=== PATIENT | male | born 1985 | race African-American/Black ===

== ENCOUNTER 2023-11-01 16:48 | Inpatient (IN) ==
[2023-11-01] MEDS: propofoL 1,000 MG/100 ML VIAL IV SCH (17:13)
[2023-11-01] MEDS: PROPOFOL IV EMULSION 10 MG/ML 20 ML VIAL IV ONE ×2 (17:15→18:06)
[2023-11-01 17:16] LABS: iSTAT Creatinine 1.3 mg/dl (0.6-1.3); iSTAT Ionized Calcium 1.24 mmol/l (1.12-1.32); iSTAT Potassium 4.3 mmol/L (3.3-5.0)
--- NOTE | 2023-11-01 17:33 | XRay Report ---
XR chest 1V portable CLINICAL HISTORY: Altered mental status. COMPARISON STUDY: None. FINDINGS: Initial image obtained at 5:00 PM demonstrated low lung volumes. Bibasilar opacities may re flect atelectasis. Subsequent image obtained of 5:16 PM demonstrate interval placement of an endotrac heal tube. Tip is 4.2 cm above the balwinder. Tip of nasogastric tube is at least within the body of the stomach. No pneumothorax or pleural effusion. There is mild opacity along the left heart border. No evidence for pulmonary edema. IMPRESSION: 1. Satisfactory positioning of the endotracheal and nasogastric tubes. 2. Mild left basilar opacity. This favors atelectasis although pneumonia/aspiration pneumonitis could appear similar. 3. No pneumothorax. ACT 112: Negative or not required by law. Electronically signed by: Mendoza Le M.D. 11/01/2023 5:32 PM
--- NOTE | 2023-11-01 17:43 | CT Scan Report ---
CT OF THE HEAD WITHOUT CONTRAST CLINICAL HISTORY: Seizure. COMPARISON STUDY: No previous studies for comparison. CT DOSE: 625.8 mGy.cm TECHNIQUE: Helical axial images of the head were obtained without IV contrast. Automated exposure con trol was utilized for the study. A dose lowering technique was utilized adhering to the principles o f ALARA. FINDINGS: No acute intracranial hemorrhage, midline shift or mass effect is present. The ventricular system is unremarkable. The basal cisterns are patent. No extra-axial collections are present. There are no findings to suggest acute dural sinus thrombosis or acute territorial infarct. There are no ca lvarial fractures. Scalp edema/skin thickening is incidentally noted. There are secretions within the nasopharynx. IMPRESSION: 1. No acute intracranial findings. 2. No calvarial fractures. ACT 112: Negative or not required by law. Electronically signed by: Mendoza Le M.D. 11/01/2023 5:42 PM
[2023-11-01 17:46] LABS: Basophils # (auto) 0.02 K/uL (0.00-0.20); Basophils % (auto) 0.3 %; Eosinophils # (auto) 0.01 K/uL (0.00-0.50); Eosinophils % (auto) 0.1 %; Hematocrit (blood only) 46.9 % (42.0-52.0); Hemoglobin 14.4 g/dl (14.0-18.0); Immature Granulocytes # (auto) 0.03 K/uL (0.01-0.20); Immature Granulocytes % (auto) 0.4 %; Lymphocytes # (auto) 2.18 K/uL (1.20-3.40); Lymphocytes % (auto) 29.8 %; Mean Corpuscular Hgb Conc 30.7 g/dL (32.0-36.0); Mean Corpuscular Volume 84.7 fL (80.0-100.0); Monocytes # (auto) 0.34 K/uL (0.11-0.59); Monocytes % (auto) 4.7 %; Neutrophils # (auto) 4.73 K/uL (1.40-6.50); Neutrophils % (auto) 64.7 %; Platelet Count 321 K/uL (130-400); RDW Standard Deviation 46.6 fL (36.4-46.3); Red Blood Count 5.54 M/uL (4.70-6.10); White Blood Count 7.31 K/ul (4.8-10.8)
[2023-11-01 17:56] LABS: Appearance Urine Clear (Clear); Bacteria Urine Automated None Seen (None Seen); Bilirubin Urine Negative (Negative); Blood Urine 1+ (Negative); Calcium Oxalate Crystals Urine Present (None Prsent); Color Urine Yellow; Glucose Urine UA Trace (Negative); Hyaline Casts Urine Present /lpf (None Presnt); Ketones Urine Negative (Negative); Leukocyte Esterase Urine Negative (Negative); Nitrite Urine Negative (Negative); Protein Urine 3+ (Negative); Specific Gravity Urine 1.017 (1.000-1.030); Urobilinogen Urine Negative (Negative); pH Urine 5.5 (4.5-7.5)
[2023-11-01 18:01] LABS: Alanine Aminotransferase 36 U/L (7-52); Albumin Level 4.7 gm/dl (3.4-5.0); Alkaline Phosphatase 63 U/L (34-104); Anion Gap 10 (3-11); Aspartate Aminotransferase 24 U/L (13-39); BUN Creatinine Ratio 11.7 (10-20); Bilirubin Direct 0.1 mg/dl (0-0.2); Bilirubin,Total 0.3 mg/dl (0.2-1.0); Blood Urea Nitrogen 14 mg/dl (6-23); Calcium 9.9 mg/dl (8.6-10.3); Carbon Dioxide 33 mmol/L (21-32); Chloride 103 mmol/L (98-107); Est GFR (African American) 90.3 ml/min; Est GFR (Non-African American) 77.9 ml/min; Glucose 162 mg/dl (70-99(Fasting)); Lipase 24 U/L (11-82); Magnesium 2.2 mg/dl (1.7-2.4); Potassium 4.3 mmol/L (3.5-5.1); Sodium 146 mmol/L (136-145)
[2023-11-01 18:03] LABS: Acetaminophen < 3 ug/ml (10-30); Salicylate < 3.0 mg/dl (3.0-30)
[2023-11-01] MEDS: PROPOFOL IV EMULSION 10 MG/ML 100 ML VIAL IV ONE (18:06)
[2023-11-01 18:07] LABS: Troponin I High Sensitivity 8.9 pg/ml (0-20)
[2023-11-01 18:22] LABS: Partial Thromboplastin Ratio 0.9; Partial Thromboplastin Time 24 Seconds (21-31); Prothrombin Time 10.9 Seconds (9.0-12.0)
[2023-11-01] MEDS: fentaNYL citrate 2,500 MCG/250 ML BAG IV SCH (18:24)
[2023-11-01 18:34] LABS: Amphetamines+Metham, Urine Neg (Neg); Barbiturates, Urine Neg (Neg); Benzodiazepine, Urine Pos (Neg); Cocaine, Urine Neg (Neg); Fentanyl, Urine Neg (Neg); MDMA (Ecstacy), Urine Neg (Neg); Marijuana, Urine Neg (Neg); Methadone, Urine Neg (Neg); Opiate, Urine Neg (Neg); Phencyclidine, Urine Neg (Neg)
[2023-11-01] MEDS: fentaNYL BOLUS from BAG IV PRN (18:35)
[2023-11-01] MEDS: RAPID SEQUENCE INDUCTION BAG ONE (18:48)
[2023-11-01] MEDS: STAT IV Infusion **Titration per Protocol STA (18:48)
--- NOTE | 2023-11-01 19:01 | History & Physical Report ---
Date of Service November 01, 2023 Assessment & Plan (1) AMS (altered mental status): Plan: Altered mental status, patient found unresponsive,? Drug-induced Initially reported to be unresponsive and alf cell. Collateral obtained from [facility]. Patient was found writhing with possible seizure-like activity and yelling out extremely agitated, received Narcan x 2 and then became sedated and EMS was called. Reportedly recent Suboxone, fentanyl, and K2 use within the alf although patient does not have a record of drug use as far as they are aware. No metabolic acidosis. Alcohol is negative. Drug screen is positive for benzos after receiving Versed. UTox otherwise negative, although history of synthetic and Suboxone at the alf in other inmates recently No leukocytosis, no reported fevers or infectious symptoms prior to episode. Follow fever curve. CThead without acute findings, specifically no evidence of intracranial bleed Patient with reduced consciousness in ER, was intubated for airway protection Admitted to ICU for respiratory management. On propofol/fentanyl for sedation/analgesia Serum osmolality pending VBG 7.4/49/34/30 (2) Seizure-like activity: Plan: Seizure like activity,? Drug-induced No prior history of seizure Reported in the field by EMS, received 5 mg of midazolam subsequently on propofol following intubation. Collateral obtained from [facility]. Patient was reported Malcolm found down writhing with seizure activity, but was screaming aloud and very agitated at the time. Received Narcan x 2 and calm down, but then subsequently had respiratory suppression. Suspicious for drug-induced episode rather than true tonic-clonic seizure CThead without acute findings - Discussed w/ Neuro. Agree w/ observation and washout. Ativan on-call if recurrent seizure. if additional seizures --> +1g Keppra load and continue BID, consult neuro, +MRI in AM, EEG in AM. - Seizure precautions - No prior hx seizure (3) HTN (hypertension): Plan: Hypertension FLE[employer] amlodipine, lisinoprilhydrochlorothiazide temporarily held, resume 11/01 Plan SCDs Full code N.p.o. History of Present Illness Primary Care Provider: HARMAN Percy 37-year-old male arrived brought in by ambulance from [facility] found unresponsive cell. Received 2 doses of Narcan in the field, per EMS patient had tonic-clonic seizure and was given 5 mg of midazolam by EMS. On arrival to ER patient was on nonrebreather, minimally responsive to painful stimuli, unresponsive to voice and was subsequently intubated. Reported history of K2, Suboxone, fentanyl within present. Urine toxicology negative for alcohol, positive for benzos following midazolam administration, negative for salicylate/acetaminophen. CT of the head was without acute findings. Chest x- ray favoring atelectasis but from which aspiration is not ruled out, ETT in place. Intubated for airway protection. On propofol and fentanyl. History not available from patient due to ETT and mental status. Collateral obtained by phone from [facility] [place] [place] [facility]: Recent K2, suboxone, fentanyl use within the alf inmates. No specific hx in Mr. Levy of drug use. Was found on the block yelling out with vomiting, narcan x2 and calmed down but breathing subsequently diminished and EMS was called for evaluation. Hx HTN on amlodipine/lisinopril/hctz, metformin 500mg for pre-DM. No other meds. No med allergies. No other notes or history available. Allergies Allergy/AdvReac Type Severity Reaction Status Date / Time No Known Allergies Allergy Verified 11/01/23 17:37 Home Medications Medication Instructions Recorded Confirmed Type amlodipine 10 mg tablet 10 mg PO DAILY 11/01/23 11/01/23 History lisinopril 20 1 tab PO DAILY 11/01/23 11/01/23 History mg-hydrochlorothiazide 25 mg tablet metformin 500 mg tablet 500 mg PO BIDWMEAL 11/01/23 11/01/23 History Past Med/Surg History Problem List Seizure-like activity HTN (hypertension) AMS (altered mental status) Social History Smoking Status: Unknown if ever smoked Preferred Language: Ukrainian Physical Exam Physical Exam: General: ETT in place. HEENT: Atraumatic, normocephalic. Pupils equal, reactive to light bilaterally Pulm: CTAB A&P. -wheezes, -rales, -rhonchi. Symmetrical chest rise. No increased work of breathing. No respiratory distress. Cardiac: RRR, -mrg. Radial pulses intact and symmetrical. Abdominal: nondistended, soft. BS present. Extremities: Withdraws to noxious stimuli in hands and feet bilaterally. Results & Data Results & Data Vital Signs (Past 12 Hours) Vital Signs Temp Pulse Resp BP Pulse Ox O2 Del Method FiO2 11/01/23 18:40 155/112 H 11/01/23 18:39 36.1 C L 83 20 95 Mechanical Vent 11/01/23 18:35 162/108 H 11/01/23 18:30 36.1 C L 85 20 94 Mechanical Vent 11/01/23 18:30 141/97 H 11/01/23 18:25 138/102 H 11/01/23 18:21 36.1 C L 84 20 93 Mechanical Vent 11/01/23 18:20 154/112 H 11/01/23 18:15 139/96 11/01/23 18:10 150/101 H 11/01/23 18:09 36.2 C L 91 H 20 95 11/01/23 18:06 36.2 C L 89 20 94 11/01/23 18:05 122/99 11/01/23 17:55 170/122 H 11/01/23 17:55 170/122 H 11/01/23 17:50 162/120 H 11/01/23 17:48 125 H 11/01/23 17:45 159/110 H 11/01/23 17:40 162/104 H 11/01/23 17:20 135/93 11/01/23 17:18 122 H 20 90 Mechanical Vent 11/01/23 17:15 120/80 11/01/23 17:12 126 H 20 94 50 11/01/23 17:11 130/83 11/01/23 17:11 130/83 11/01/23 17:07 154/113 H 11/01/23 17:07 154/113 H 11/01/23 17:06 117 H 94 Ambu-Bag 11/01/23 17:05 108/88 11/01/23 17:03 117 H 96 11/01/23 17:00 107/91 11/01/23 17:00 107/91 11/01/23 16:55 Room Air 11/01/23 16:55 Non-rebreather 11/01/23 16:55 36.6 C Non-rebreather PG Care Time/CCT Total # of Minutes Spent Total Time Spent with Patient: Total time spent is greater than 50% in coordination of care (as documented) at patient's floor/unit and/or counseling patient: Coding Level of Care Code 33617 INT INP/OBS CARE MIN Diagnoses AMS (altered mental status) R41.82 Seizure-like activity R56.9 HTN (hypertension) I10
[2023-11-01 19:04] LABS: Base Excess VBG 4.5 mEq/L; HCO3 VBG 30 mmol/L; PCO2 VBG 49 mmHg (38-50); PO2 VBG 34 mmHg
--- NOTE | 2023-11-01 19:51 | Emergency Department Note ---
History of Present Illness General Chief complaint: Unresponsive Stated complaint: UNRESPONSIVE Time Seen by Provider: 11/01/23 16:55 Source: EMS and police History of Present Illness Provider complaint: Altered mental status unresponsive 37-year-old male prisoner presents emergency department with correctional officers via EMS. According to EMS and correctional officers, there was concern that the patient might of overdose. Patient went to the [facility] for suspected overdose and 8 mg of Narcan was given intranasally. According to the correctional officers the patient did seem more alert after that. EMS arrived when EMS arrived was transporting the patient patient started have seizure-like activity tonic-clonic jerks being. 5 mg midazolam was given to the patient which stopped the tonic-clonic jerking. Patient has no history of seizures. History of hypertension. 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 No concern for trauma per the correctional officers at bedside. Home Medications Medication Instructions Recorded Confirmed Type amlodipine 10 mg tablet 10 mg PO DAILY 11/01/23 11/01/23 History lisinopril 20 1 tab PO DAILY 11/01/23 11/01/23 History mg-hydrochlorothiazide 25 mg tablet metformin 500 mg tablet 500 mg PO BIDWMEAL 11/01/23 11/01/23 History Allergies Allergy/AdvReac Type Severity Reaction Status Date / Time No Known Allergies Allergy Verified 11/01/23 17:37 Past Med/Surg History Problem List (Updated 11/01/23 @ 20:01 by Eugenio Charlton MD) Acute drug overdose (Acute) Seizure-like activity (Acute) AMS (altered mental status) Medical History HTN (hypertension) Social History Smoking Status: Unknown if ever smoked Preferred Language: Bulgarian Physical Exam Vital Signs Vital Signs - 24 hr 11/01/23 16:55 11/01/23 16:55 11/01/23 16:55 Temperature 36.6 C Temperature Source Oral Pulse Rate Pulse Rate from SpO2 Sensor Respiratory Rate Blood Pressure Blood Pressure Mean Pulse Oximetry Oxygen Delivery Method Non-rebreather Non-rebreather Room Air Fraction of Inspired Oxygen Sepsis New/Unexplained Change in Mental Status No Sepsis Action Taken by Nursing No Action Required End-Tidal CO2 11/01/23 17:00 11/01/23 17:00 11/01/23 17:03 Temperature Temperature Source Pulse Rate 117 H Pulse Rate from SpO2 Sensor 120 H Respiratory Rate Blood Pressure 107/91 107/91 Blood Pressure Mean 98 98 Pulse Oximetry 96 Oxygen Delivery Method Fraction of Inspired Oxygen Sepsis New/Unexplained Change in Mental Status Sepsis Action Taken by Nursing End-Tidal CO2 11/01/23 17:05 11/01/23 17:06 11/01/23 17:07 Temperature Temperature Source Pulse Rate 117 H Pulse Rate from SpO2 Sensor 118 H Respiratory Rate Blood Pressure 108/88 154/113 H Blood Pressure Mean 93 133 Pulse Oximetry 94 Oxygen Delivery Method Ambu-Bag Fraction of Inspired Oxygen Sepsis New/Unexplained Change in Mental Status Sepsis Action Taken by Nursing End-Tidal CO2 11/01/23 17:07 11/01/23 17:11 11/01/23 17:11 Temperature Temperature Source Pulse Rate Pulse Rate from SpO2 Sensor Respiratory Rate Blood Pressure 154/113 H 130/83 130/83 Blood Pressure Mean 133 103 103 Pulse Oximetry Oxygen Delivery Method Fraction of Inspired Oxygen Sepsis New/Unexplained Change in Mental Status Sepsis Action Taken by Nursing End-Tidal CO2 11/01/23 17:12 11/01/23 17:15 11/01/23 17:18 Temperature Temperature Source Pulse Rate 126 H 122 H Pulse Rate from SpO2 Sensor 122 H Respiratory Rate 20 20 Blood Pressure 120/80 Blood Pressure Mean 93 Pulse Oximetry 94 90 Oxygen Delivery Method Mechanical Vent Fraction of Inspired Oxygen 50 Sepsis New/Unexplained Change in Mental Status Sepsis Action Taken by Nursing End-Tidal CO2 49 47 11/01/23 17:20 11/01/23 17:40 11/01/23 17:45 Temperature Temperature Source Pulse Rate Pulse Rate from SpO2 Sensor Respiratory Rate Blood Pressure 135/93 162/104 H 159/110 H Blood Pressure Mean 103 120 128 Pulse Oximetry Oxygen Delivery Method Fraction of Inspired Oxygen Sepsis New/Unexplained Change in Mental Status Sepsis Action Taken by Nursing End-Tidal CO2 11/01/23 17:48 11/01/23 17:50 11/01/23 17:55 Temperature Temperature Source Pulse Rate 125 H Pulse Rate from SpO2 Sensor Respiratory Rate Blood Pressure 162/120 H 170/122 H Blood Pressure Mean 138 138 Pulse Oximetry Oxygen Delivery Method Fraction of Inspired Oxygen Sepsis New/Unexplained Change in Mental Status Sepsis Action Taken by Nursing End-Tidal CO2 11/01/23 17:55 11/01/23 18:05 11/01/23 18:06 Temperature 36.2 C L Temperature Source Pulse Rate 89 Pulse Rate from SpO2 Sensor 89 Respiratory Rate 20 Blood Pressure 170/122 H 122/99 Blood Pressure Mean 138 102 Pulse Oximetry 94 Oxygen Delivery Method Fraction of Inspired Oxygen Sepsis New/Unexplained Change in Mental Status Sepsis Action Taken by Nursing End-Tidal CO2 38 11/01/23 18:09 11/01/23 18:10 11/01/23 18:15 Temperature 36.2 C L Temperature Source Pulse Rate 91 H Pulse Rate from SpO2 Sensor 92 H Respiratory Rate 20 Blood Pressure 150/101 H 139/96 Blood Pressure Mean 113 113 Pulse Oximetry 95 Oxygen Delivery Method Fraction of Inspired Oxygen Sepsis New/Unexplained Change in Mental Status Sepsis Action Taken by Nursing End-Tidal CO2 38 11/01/23 18:20 11/01/23 18:21 11/01/23 18:25 Temperature 36.1 C L Temperature Source Pulse Rate 84 Pulse Rate from SpO2 Sensor 85 Respiratory Rate 20 Blood Pressure 154/112 H 138/102 H Blood Pressure Mean 123 113 Pulse Oximetry 93 Oxygen Delivery Method Mechanical Vent Fraction of Inspired Oxygen Sepsis New/Unexplained Change in Mental Status Sepsis Action Taken by Nursing End-Tidal CO2 39 11/01/23 18:30 11/01/23 18:30 11/01/23 18:35 Temperature 36.1 C L Temperature Source Pulse Rate 85 Pulse Rate from SpO2 Sensor 86 Respiratory Rate 20 Blood Pressure 141/97 H 162/108 H Blood Pressure Mean 119 117 Pulse Oximetry 94 Oxygen Delivery Method Mechanical Vent Fraction of Inspired Oxygen Sepsis New/Unexplained Change in Mental Status Sepsis Action Taken by Nursing End-Tidal CO2 37 11/01/23 18:39 11/01/23 18:40 11/01/23 18:40 Temperature 36.1 C L Temperature Source Pulse Rate 83 Pulse Rate from SpO2 Sensor 84 Respiratory Rate 20 Blood Pressure 155/112 H 155/112 H Blood Pressure Mean 127 127 Pulse Oximetry 95 Oxygen Delivery Method Mechanical Vent Fraction of Inspired Oxygen Sepsis New/Unexplained Change in Mental Status Sepsis Action Taken by Nursing End-Tidal CO2 39 11/01/23 18:42 11/01/23 18:45 11/01/23 18:48 Temperature 36.2 C L 36.2 C L Temperature Source Pulse Rate 82 82 Pulse Rate from SpO2 Sensor 82 82 Respiratory Rate 20 20 Blood Pressure 147/107 H Blood Pressure Mean 124 Pulse Oximetry 95 96 Oxygen Delivery Method Mechanical Vent Mechanical Vent Fraction of Inspired Oxygen Sepsis New/Unexplained Change in Mental Status Sepsis Action Taken by Nursing End-Tidal CO2 37 37 11/01/23 18:50 11/01/23 18:51 11/01/23 19:10 Temperature 36.2 C L Temperature Source Pulse Rate 86 Pulse Rate from SpO2 Sensor 85 Respiratory Rate 20 Blood Pressure 160/117 H 164/123 H Blood Pressure Mean 128 136 Pulse Oximetry 97 Oxygen Delivery Method Mechanical Vent Fraction of Inspired Oxygen Sepsis New/Unexplained Change in Mental Status Sepsis Action Taken by Nursing End-Tidal CO2 38 11/01/23 19:15 11/01/23 19:15 11/01/23 19:15 Temperature 36.3 C L Temperature Source Pulse Rate 79 Pulse Rate from SpO2 Sensor Respiratory Rate 20 Blood Pressure 167/124 H 167/124 H Blood Pressure Mean 145 145 Pulse Oximetry 97 Oxygen Delivery Method Mechanical Vent Fraction of Inspired Oxygen Sepsis New/Unexplained Change in Mental Status Sepsis Action Taken by Nursing End-Tidal CO2 34 11/01/23 19:18 11/01/23 19:25 11/01/23 19:31 Temperature 36.3 C L Temperature Source Pulse Rate 80 Pulse Rate from SpO2 Sensor Respiratory Rate 20 Blood Pressure 159/109 H 179/123 H Blood Pressure Mean 125 141 Pulse Oximetry 97 Oxygen Delivery Method Mechanical Vent Fraction of Inspired Oxygen Sepsis New/Unexplained Change in Mental Status Sepsis Action Taken by Nursing End-Tidal CO2 34 11/01/23 19:35 11/01/23 19:35 11/01/23 19:39 Temperature 36.4 C L Temperature Source Pulse Rate 85 Pulse Rate from SpO2 Sensor Respiratory Rate 20 Blood Pressure 161/115 H 161/115 H Blood Pressure Mean 120 120 Pulse Oximetry 93 Oxygen Delivery Method Mechanical Vent Fraction of Inspired Oxygen Sepsis New/Unexplained Change in Mental Status Sepsis Action Taken by Nursing End-Tidal CO2 36 11/01/23 19:40 Temperature Temperature Source Pulse Rate Pulse Rate from SpO2 Sensor Respiratory Rate Blood Pressure 163/109 H Blood Pressure Mean 122 Pulse Oximetry Oxygen Delivery Method Fraction of Inspired Oxygen Sepsis New/Unexplained Change in Mental Status Sepsis Action Taken by Nursing End-Tidal CO2 Physical Exam GENERAL: Sonorous respirations patient appears ill. HENT: Exam performed. - Head: Normocephalic and atraumatic. EYES: Pupils 4 mm and slightly reactive. NECK: Normal range of motion. Neck supple. No JVD present. CV: Tachycardia rate, regular rhythm, normal heart sounds and intact distal pulses. There is no peripheral edema. Palpable radial pulses bue. PULM/CHEST: Effort normal and breath sounds normal. No respiratory distress. No stridor. He has no wheezes. He has no rales. ABD: The abdomen is distended. Abrasion over the anterior abdominal wall which the correctional officers and EMS report occurred during patient transfer. NEURO: GCS eye subscore is 1. GCS verbal subscore is 2. GCS motor subscore is 4. Procedures Intubation Time out performed: Yes sedative: other (Propofol) Mg Given: 100 paralytic: Rocuronium Mg Given: 100 Laryngoscope: other ([place] scope) ET Tube Size: 7.5 ET Tube Uncuffed: Yes Tube Secured Depth (cm): 26 Tube Secured Location: lips Tube Placement Confirmation: visualized tube passing through cords, equal breath sounds bilaterally, no breath sounds over epigastrium and confirmation by capnometry Patient Tolerated Procedure: well Course Course 165: The patient was evaluated in room B1. A complete history and physical exam was performed Cardiac monitoring: An order was placed for continuous cardiac monitoring. The monitor shows a rate of 110 with sinus rhythm interpreted by me Patient arrives. Low GCS. Will not arouse to noxious stimuli. Decision was made to intubate the patient. See procedure note. 1843: Vital signs stable on ventilator. Labs show a white blood cell count 7.31 coagulation studies within normal limits. VBG within normal limits. Serum ammonia serum alcohol negative. No seizure-like activity in the emergency department. Patient was reaching for the endotracheal tube and started to have purposeful movement. I discussed case with Dr. Steele ICU. Patient will be admitted to the hospitalist team. Administered Medications Fentanyl Citrate (Fentanyl Bolus From Bag) 50 mcg IV Q60M PRN PRN Reason: Pain or Agitation Stop: 11/15/23 18:11 Last Admin: 11/01/23 18:35 Dose: 50 mcg Documented By: CECE Co-signed By: STEPHANIE Propofol (Diprivan) 1,000 mg in 100 mls @ 31.86 mls/hr IV .Q3H9M [facility]; Protocol Stop: 11/04/23 17:14 Last Titration: 11/01/23 19:04 Dose: 50 mcg/kg/min, 31.9 mls/hr Documented By: Titration: 11/01/23 18:56 Dose: 45 mcg/kg/min, 28.7 mls/hr Documented By: Titration: 11/01/23 18:49 Dose: 40 mcg/kg/min, 25.5 mls/hr Documented By: Titration: 11/01/23 18:41 Dose: 35 mcg/kg/min, 22.3 mls/hr Documented By: Titration: 11/01/23 18:35 Dose: 30 mcg/kg/min, 19.1 mls/hr Documented By: Titration: 11/01/23 18:30 Dose: 25 mcg/kg/min, 15.9 mls/hr Documented By: Titration: 11/01/23 18:23 Dose: 20 mcg/kg/min, 12.7 mls/hr Documented By: Titration: 11/01/23 18:07 Dose: 15 mcg/kg/min, 9.6 mls/hr Documented By: Titration: 11/01/23 17:58 Dose: 10 mcg/kg/min, 6.4 mls/hr Documented By: Admin: 11/01/23 17:13 Dose: 5 mcg/kg/min, 3.2 mls/hr Documented By: STEPHANIE Co-signed By: STEPHANIE Fentanyl Citrate (Fentanyl Citrate) 2,500 mcg in 250 mls @ 5 mls/hr IV .Q50H [facility]; Protocol Stop: 11/15/23 18:14 Last Titration: 11/01/23 18:40 Dose: 50 mcg/hr, 5 mls/hr Documented By: CECE Co-signed By: VERONICA Admin: 11/01/23 18:24 Dose: 25 mcg/hr, 2.5 mls/hr Documented By: CECE Co-signed By: STEPHANIE Discontinued Medications Miscellaneous (Rapid Sequence Induction Bag) Confirm Administered Dose 1 each N/A .STK-MED ONE Stop: 11/01/23 16:53 Last Admin: 11/01/23 18:48 Dose: Not Given Documented By: CECE Miscellaneous (Stat Iv Infusion Titration Per Protocol) 1 each N/A NOW STA Stop: 11/01/23 18:13 Last Admin: 11/01/23 18:48 Dose: Not Given Documented By: CECE Propofol (Propofol Iv Emulsion 10 Mg/Ml 20 Ml Vial) Confirm Administered Dose 200 mg IV .STK-MED ONE Stop: 11/01/23 17:01 Last Admin: 11/01/23 18:06 Dose: Not Given Documented By: CECE Propofol (Propofol Iv Emulsion 10 Mg/Ml 100 Ml Vial) Confirm Administered Dose 1,000 mg IV .STK-MED ONE Stop: 11/01/23 17:01 Last Admin: 11/01/23 18:06 Dose: Not Given Documented By: CECE Propofol (Propofol Iv Emulsion 10 Mg/Ml 20 Ml Vial) 100 mg IV NOW ONE Stop: 11/01/23 17:06 Last Admin: 11/01/23 17:15 Dose: 100 mg Documented By: CECE Co-signed By: STEPHANIE Critical Care Time Critical Care Time: Yes Total Critical Care Time: 53 I have personally spent greater than 53 minutes of critical care time in the direct management of this patient. This includes bedside care, interpretation of diagnostic studies, and testing, discussion with consultants, patient, and family members, and other required patient management activities. This 53 minutes is in excess of all separately billable procedures. Medical Decision Making Laboratory Data Attestation: I reviewed the patient's lab results. 11/01/23 17:03 11/01/23 17:03 Lab Results 11/01/23 11/01/23 11/01/23 Range/Units 16:58 17:03 17:16 WBC 7.31 (4.8-10.8) K/ul RBC 5.54 (4.70-6.10) M/uL Hgb 14.4 (14.0-18.0) g/dl POC Hgb 16.0 (14.0-18.0) g/dl Hct 46.9 (42.0-52.0) % POC Hct 47 (42-52) % MCV 84.7 (80.0-100.0) fL MCH 26.0 (25.0-34.0) pg MCHC 30.7 L (32.0-36.0) g/dL RDW Std Deviation 46.6 H (36.4-46.3) fL RDW Coeff of [place] 15.0 H (11.5-14.5) % Plt Count 321 (130-400) K/uL MPV 9.0 L (9.4-12.4) fL Immature Gran % (Auto) 0.4 % Neut % (Auto) 64.7 % Lymph % (Auto) 29.8 % [place] % (Auto) 4.7 % Eos % (Auto) 0.1 % Baso % (Auto) 0.3 % Neut # (Auto) 4.73 (1.40-6.50) K/uL Lymph # (Auto) 2.18 (1.20-3.40) K/uL [place] # (Auto) 0.34 (0.11-0.59) K/uL Eos # (Auto) 0.01 (0.00-0.50) K/uL Baso # (Auto) 0.02 (0.00-0.20) K/uL Immature Gran # (Auto) 0.03 (0.01-0.20) K/uL PT 10.9 (9.0-12.0) Seconds INR 1.0 (0.9-1.1) APTT 24 (21-31) Seconds PTT Ratio 0.9 VBG pH VBG pCO2 VBG pO2 VBG HCO3 VBG O2 Saturation VBG Base Excess Barometric Pressure POC Sodium 146 H (135-144) mmol/L Sodium 146 H (136-145) mmol/L POC Potassium 4.3 (3.3-5.0) mmol/L Potassium 4.3 (3.5-5.1) mmol/L POC Chloride 102 (101-112) mmol/L Chloride 103 (98-107) mmol/L Carbon Dioxide 33 H (21-32) mmol/L POC Total CO2 32 H (24-31) mmol/L Anion Gap 10 (3-11) POC Anion Gap 17.0 (16-25) mmol/L POC BUN 14 (7-18) mg/dl BUN 14 (6-23) mg/dl Creatinine 1.20 (0.6-1.4) mg/dl POC Creatinine 1.3 (0.6-1.3) mg/dl Est Cr Clr Drug Dosing Not Reportable Est GFR ( Amer) 90.3 ml/min Est GFR (Non-Af Amer) 77.9 ml/min BUN/Creatinine Ratio 11.7 (10-20) Glucose 162 H (70-99(Fasting)) mg/dl POC Glucose 163 H (70-99) mg/dl POC Glucose (other) 168 H (70-99) mg/dl Calcium 9.9 (8.6-10.3) mg/dl POC Ioniz Calcium Karmen 1.24 (1.12-1.32) mmol/l Magnesium 2.2 (1.7-2.4) mg/dl Total Bilirubin 0.3 (0.2-1.0) mg/dl Direct Bilirubin 0.1 (0-0.2) mg/dl AST 24 (13-39) U/L ALT 36 (7-52) U/L Alkaline Phosphatase 63 (34-104) U/L Ammonia (18-72) umol/L Troponin I High Sens 8.9 (0-20) pg/ml Total Protein 8.0 (6.0-8.3) gm/dl Albumin 4.7 (3.4-5.0) gm/dl Lipase 24 (11-82) U/L Urine Color Yellow Urine Appearance Clear (Clear) Urine pH 5.5 (4.5-7.5) Ur Specific [place] 1.017 (1.000-1.030) Urine Protein 3+ H (Negative) Urine Glucose (UA) Trace H (Negative) Urine Ketones Negative (Negative) Urine Blood 1+ H (Negative) Urine Nitrite Negative (Negative) Urine Bilirubin Negative (Negative) Urine Urobilinogen Negative (Negative) Ur Leukocyte Esterase Negative (Negative) Urine WBC (Auto) 6-10 H (0-5) /hpf Urine RBC (Auto) 3-5 H (0-2) /hpf U Hyaline Cast (Auto) 11-20 H (0-2) /lpf U Epithel Cells (Auto) 3-5 H (0-2) /hpf Urine Bacteria (Auto) None Seen (None Seen) Calcium Oxalate Crystal Present A (None Prsent) Hyaline Casts Present A (None Presnt) /lpf Salicylates < 3.0 L (3.0-30) mg/dl Urine Opiates Screen Neg (Neg) Ur Methadone, Qual Neg (Neg) Urine Fentanyl Screen Neg (Neg) Acetaminophen < 3 L (10-30) ug/ml Urine Barbiturates Neg (Neg) Ur Phencyclidine (PCP) Neg (Neg) U Amphetamin/Meth Scrn Neg (Neg) MDMA (Ecstasy) Screen Neg (Neg) U Benzodiazepines Scrn Pos H (Neg) Ur Cocaine Metabolite Neg (Neg) U Marijuana (THC) Screen Neg (Neg) Ethyl Alcohol mg/dL < 10.0 (<10.0) mg/dl 11/01/23 11/01/23 Range/Units 18:10 18:48 WBC (4.8-10.8) K/ul RBC (4.70-6.10) M/uL Hgb (14.0-18.0) g/dl POC Hgb (14.0-18.0) g/dl Hct (42.0-52.0) % POC Hct (42-52) % MCV (80.0-100.0) fL MCH (25.0-34.0) pg MCHC (32.0-36.0) g/dL RDW Std Deviation (36.4-46.3) fL RDW Coeff of [place] (11.5-14.5) % Plt Count (130-400) K/uL MPV (9.4-12.4) fL Immature Gran % (Auto) % Neut % (Auto) % Lymph % (Auto) % [place] % (Auto) % Eos % (Auto) % Baso % (Auto) % Neut # (Auto) (1.40-6.50) K/uL Lymph # (Auto) (1.20-3.40) K/uL [place] # (Auto) (0.11-0.59) K/uL Eos # (Auto) (0.00-0.50) K/uL Baso # (Auto) (0.00-0.20) K/uL Immature Gran # (Auto) (0.01-0.20) K/uL PT (9.0-12.0) Seconds INR (0.9-1.1) APTT (21-31) Seconds PTT Ratio VBG pH Cancelled 7.40 VBG pCO2 Cancelled 49 VBG pO2 Cancelled 34 VBG HCO3 Cancelled 30 VBG O2 Saturation Cancelled 64.0 VBG Base Excess Cancelled 4.5 Barometric Pressure Cancelled POC Sodium (135-144) mmol/L Sodium (136-145) mmol/L POC Potassium (3.3-5.0) mmol/L Potassium (3.5-5.1) mmol/L POC Chloride (101-112) mmol/L Chloride (98-107) mmol/L Carbon Dioxide (21-32) mmol/L POC Total CO2 (24-31) mmol/L Anion Gap (3-11) POC Anion Gap (16-25) mmol/L POC BUN (7-18) mg/dl BUN (6-23) mg/dl Creatinine (0.6-1.4) mg/dl POC Creatinine (0.6-1.3) mg/dl Est Cr Clr Drug Dosing Est GFR ( Amer) ml/min Est GFR (Non-Af Amer) ml/min BUN/Creatinine Ratio (10-20) Glucose (70-99(Fasting)) mg/dl POC Glucose (70-99) mg/dl POC Glucose (other) (70-99) mg/dl Calcium (8.6-10.3) mg/dl POC Ioniz Calcium Karmen (1.12-1.32) mmol/l Magnesium (1.7-2.4) mg/dl Total Bilirubin (0.2-1.0) mg/dl Direct Bilirubin (0-0.2) mg/dl AST (13-39) U/L ALT (7-52) U/L Alkaline Phosphatase (34-104) U/L Ammonia 51.0 (18-72) umol/L Troponin I High Sens (0-20) pg/ml Total Protein (6.0-8.3) gm/dl Albumin (3.4-5.0) gm/dl Lipase (11-82) U/L Urine Color Urine Appearance (Clear) Urine pH (4.5-7.5) Ur Specific [place] (1.000-1.030) Urine Protein (Negative) Urine Glucose (UA) (Negative) Urine Ketones (Negative) Urine Blood (Negative) Urine Nitrite (Negative) Urine Bilirubin (Negative) Urine Urobilinogen (Negative) Ur Leukocyte Esterase (Negative) Urine WBC (Auto) (0-5) /hpf Urine RBC (Auto) (0-2) /hpf U Hyaline Cast (Auto) (0-2) /lpf U Epithel Cells (Auto) (0-2) /hpf Urine Bacteria (Auto) (None Seen) Calcium Oxalate Crystal (None Prsent) Hyaline Casts (None Presnt) /lpf Salicylates (3.0-30) mg/dl Urine Opiates Screen (Neg) Ur Methadone, Qual (Neg) Urine Fentanyl Screen (Neg) Acetaminophen (10-30) ug/ml Urine Barbiturates (Neg) Ur Phencyclidine (PCP) (Neg) U Amphetamin/Meth Scrn (Neg) MDMA (Ecstasy) Screen (Neg) U Benzodiazepines Scrn (Neg) Ur Cocaine Metabolite (Neg) U Marijuana (THC) Screen (Neg) Ethyl Alcohol mg/dL (<10.0) mg/dl Imaging Data Attestation: I personally reviewed and interpreted this imaging study as follows: My Impression: Chest x-ray: ETT in place no pneumothorax Radiologist's Impression: Head CT 11/01/23 16:55 CT OF THE HEAD WITHOUT CONTRAST CLINICAL HISTORY: Seizure. COMPARISON STUDY: No previous studies for comparison. CT DOSE: 625.8 mGy.cm TECHNIQUE: Helical axial images of the head were obtained without IV contrast. Automated exposure control was utilized for the study. A dose lowering technique was utilized adhering to the principles of ALARA. FINDINGS: No acute intracranial hemorrhage, midline shift or mass effect is present. The ventricular system is unremarkable. The basal cisterns are patent. No extra-axial collections are present. There are no findings to suggest acute dural sinus thrombosis or acute territorial infarct. There are no calvarial fractures. Scalp edema/skin thickening is incidentally noted. There are secretions within the nasopharynx. IMPRESSION: 1. No acute intracranial findings. 2. No calvarial fractures. ACT 112: Negative or not required by law. Electronically signed by: Mendoza Le M.D. 11/01/2023 5:42 PM Chest X-Ray 11/01/23 16:56 XR chest 1V portable CLINICAL HISTORY: Altered mental status. COMPARISON STUDY: None. FINDINGS: Initial image obtained at 5:00 PM demonstrated low lung volumes. Bibasilar opacities may reflect atelectasis. Subsequent image obtained of 5:16 PM demonstrate interval placement of an endotracheal tube. Tip is 4.2 cm above the balwinder. Tip of nasogastric tube is at least within the body of the stomach. No pneumothorax or pleural effusion. There is mild opacity along the left heart border. No evidence for pulmonary edema. IMPRESSION: 1. Satisfactory positioning of the endotracheal and nasogastric tubes. 2. Mild left basilar opacity. This favors atelectasis although pneumonia/aspiration pneumonitis could appear similar. 3. No pneumothorax. ACT 112: Negative or not required by law. Electronically signed by: Mendoza Le M.D. 11/01/2023 5:32 PM ECG Data Attestation: I personally reviewed and interpreted this ECG as follows: Indication: + toxicologic Rate (beats per minute): 96 Rhythm: + normal sinus ECG Intervals/blocks: + Normal QRS, + Normal DE and + Normal QT-c ECG ST segments: + Normal ST segments [facility] Narrative 1655: The patient was evaluated in room B1. A complete history and physical exam was performed Cardiac monitoring: An order was placed for continuous cardiac monitoring. The monitor shows a rate of 110 with sinus rhythm interpreted by me Patient arrives. Low GCS. Will not arouse to noxious stimuli. Decision was made to intubate the patient. See procedure note. 1843: Vital signs stable on ventilator. Labs show a white blood cell count 7.31 coagulation studies within normal limits. VBG within normal limits. Serum ammonia serum alcohol negative. No seizure-like activity in the emergency department. Patient was reaching for the endotracheal tube and started to have purposeful movement. I discussed case with Dr. Steele ICU. Patient will be admitted to the hospitalist team. Impression & Plan Acute drug overdose, Seizure-like activity Discharge Plan Visit Data Chief Complaint: Unresponsive Stated Complaint: UNRESPONSIVE ED Provider: Eugenio Charlton Discharge Problem: Acute drug overdose, Seizure-like activity Patient Disposition: Admitted As Inpatient Forms Stand Alone Forms: My [facility] Prescriptions Prescriptions: No Action metformin 500 mg Tablet 500 mg PO BIDWMEAL amlodipine 10 mg Tablet 10 mg PO DAILY lisinopril-hydrochlorothiazide 20-25 mg Tablet 1 tab PO DAILY Referrals Referrals: Percy HAMMER [Primary Care Provider] -
[2023-11-01 19:55] LABS: Base Excess VBG 3.4 mEq/L; HCO3 VBG 29 mmol/L; Oxygen Saturation VBG 70.6 %; PCO2 VBG 44 mmHg (38-50); PO2 VBG 39 mmHg; pH VBG 7.42 (7.36-7.41)
[2023-11-01] MEDS: MIDAZOLAM HCL 5 MG/ML 2ML VIAL ONE (20:03)
[2023-11-01] MEDS: MIDAZOLAM HCL 5 MG/ML 2ML VIAL IV STA (20:09)
[2023-11-01 20:50] LABS: iSTAT Arterial Blood Gas HCO3 27 meg/L (19-24); iSTAT Arterial Blood Gas pCO2 35 mmHg (35-46); iSTAT Arterial Blood Gas pO2 72 mmHg (80-95); iSTAT Carbon Dioxide 28 mmol/L (24-31); iSTAT Hematocrit 43 % (42-52); iSTAT Hemoglobin 14.6 g/dl (14.0-18.0); iSTAT Potassium 3.6 mmol/L (3.3-5.0); iSTAT Sodium 143 mmol/L (135-144)
[2023-11-01] MEDS ORDERED: LORazepam 2 MG in SYRINGE 1 ML IV PRN (21:16)
[2023-11-01] MEDS: ICU Protocol for HYPERglycemia SCH ×2 (21:34→23:56)
[2023-11-01] MEDS ORDERED: Nursing to Pharmacy Communication SCH (21:45)
[2023-11-01 22:31] LABS: iSTAT Allen Test Pass; iSTAT Art Bld Gas pCO2 Correct 43 mmHg (35-46); iSTAT Art Bld Gas pH Corrected 7.461 (7.35-7.45); iSTAT Arterial Blood Gas HCO3 31 meg/L (19-24); iSTAT Arterial Blood Gas pCO2 44 mmHg (35-46); iSTAT Arterial Blood Gas pH 7.45 (7.35-7.45); iSTAT Arterial Blood Gas pO2 90 mmHg (80-95); iSTAT Arterial Blood Gas pO2 C 86; iSTAT Carbon Dioxide 32 mmol/L (24-31); iSTAT FiO2 40 %; iSTAT Hematocrit 42 % (42-52); iSTAT Hemoglobin 14.3 g/dl (14.0-18.0); iSTAT Potassium 3.6 mmol/L (3.3-5.0); iSTAT Site L Radial; iSTAT Sodium 144 mmol/L (135-144)
--- NOTE | 2023-11-01 23:42 | Critical Care Consultation ---
Date of Consultation November 01, 2023 Assessment & Plan (1) AMS (altered mental status): Reason Critically Ill: 37-year-old male presents to the ICU with altered mental status with presumed drug overdose, for which she was intubated in the emergency department. Now presents to the ICU mechanically ventilated. Neuro - AMSpatient presented with acute encephalopathy. Per reported history patient had significant agitation and was given Versed en route via EMS. May have had possible seizure-like activity, was unresponsive on arrival to the emergency department and intubated. Postintubation patient has had episodes of severe agitation and currently requiring sedation with propofol and fentanyl drips. - No history of seizures. Possible drug-induced seizure?. Neurology consulted recommended starting Keppra if continues to have seizure-like activity. Will obtain EEG in AM. Continue propofol drip - CT head negative for acute intracranial findings -UDS unremarkable, EtOH negative. Patient does have history of Drug use in detention per detention staff. - Will continue with airway support with mechanical ventilation and sedation for now. Once patient able to follow Commands can extubate. -Will monitor neurological exam closely Cardiac - HTNhold antihypertensives for now. Currently hemodynamically stable without need for vasopressor support. Continuous monitoring on telemetry Respiratory - Mechanically ventilated Patient was emergently intubated in the ED due to compromised airway with encephalopathy. No significant hypoxia although chest x-ray suspicious of lower lobe pneumonia and possible aspiration. No leukocytosis or fevers. Continue with mechanical ventilation and wean vent as tolerated, will likely extubate when patient able to follow commands. Continuous end-tidal CO2 and pulse ox monitoring. Follow-up morning chest x-ray and ABG. GI - N.p.o. RENAL/LYTES - Creatinine within normal limits. Monitor routine BMPs and replete electrolytes as indicated Continue IV fluid resuscitation while n.p.o. Plasma-Lyte at 125 mL/h. - Foleystrict I's and O's ENDO - History of prediabetes. Hold metformin for now. ICU hyperglycemic protocol HEME - H&H stable, monitor routine CBC ID - No clear evidence of infectious process at this time. Will hold off on antibiotics for now. Trend fever curve LINES/IV ACCESS - Peripheral IV DVT PROPHYLAXIS - SCDs I have personally spent 58 minutes of critical care time in the direct management of this patient. This is a life/limb threatening event. This includes time spent evaluating patient, direct bedside care, chart review, placing orders, interpretation of diagnostic studies, discussion with consultants, patient, and family members, as well as other required patient management activities. This time is exclusive of all separately billable procedures, and teaching time and separate from and in addition to any other critical care service time. Thank you for allowing us to participate in the care of this patient. Please refer to my attending physician's documentation for any further recommendations. (2) Acute drug overdose: (3) Seizure-like activity: Supervising Physician Co-Signing Physician Notes Patient seen and examined. EMR reviewed. Discussed with critical care MONIKA and with ER staff. He was referred to documentation and notes. For additional details refer to my progress note from 11/02/2023 History of Present Illness Attending Physician: Gonsalo Rubin MD History of Present Illness Patient is a 37-year-old male PMH's of hypertension, prediabetes and current inmate at [facility] who presented to the emergency department after being found with extreme agitation, vomiting, and Seizure-like activity in which she received 5 mg of midazolam by EMS. On arrival to the emergency department patient was Minimally responsive and was emergently intubated. He was taken for CT head which was negative for acute intracranial findings. Toxicology report unremarkable except for benzos which she received in route via EMS. Salicylate and acetaminophen, EtOH negative. Patient did have reported history of Suboxone and fentanyl use within detention, and suspect likelihood of drug-induced encephalopathy is high. Patient did become extremely agitated while on ventilator and required additional sedation. Patient now being admitted to ICU for further management at this time. Allergies Allergy/AdvReac Type Severity Reaction Status Date / Time No Known Allergies Allergy Verified 11/01/23 17:37 Home Medications Medication Instructions Recorded Confirmed Type amlodipine 10 mg tablet 10 mg PO DAILY 11/01/23 11/01/23 History lisinopril 20 1 tab PO DAILY 11/01/23 11/01/23 History mg-hydrochlorothiazide 25 mg tablet metformin 500 mg tablet 500 mg PO BIDWMEAL 11/01/23 11/01/23 History Patient History Medical History HTN (hypertension) Social History Smoking Status: Unknown if ever smoked Preferred Language: [place] Islander Communication Ability: Effective [employer] Required: No Beliefs That Will Affect Care: None Current Living Situation: Other Current Living Situation Comment: [facility] Assistive Devices: None Review of Systems Review of Systems: Unobtainable due to endotracheal tube Physical Exam Eyes: PERRL, conjunctivae normal, anicteric sclerae ENMT: external ear and nose normal, oropharynx normal Neck: trachea midline, no thyromegaly Respiratory: Rhonchi auscultated bilaterally in the upper and middle lobe, With diminished bases Cardiovascular: RRR, no murmur, no edema Heart Sounds: normal S1 and normal S2; no murmur Gastrointestinal (Abdomen): normal bowel sounds, soft, nontender, no hepatosplenomegaly Musculoskeletal: no cyanosis or clubbing, extremities motor strength 5/5 Skin: no rashes, warm and dry Neurologic: Unable to assess due to sedation Psychiatric: Unable to assess due to sedation Genitourinary: Indwelling Clark catheter present Results & Data Results & Data Vital Signs (Past 12 Hours) Vital Signs Temp Pulse Pulse Resp BP BP Pulse Ox 11/01/23 21:30 11/01/23 21:30 11/01/23 21:24 36.4 C L 82 18 144/100 H 97 11/01/23 21:16 11/01/23 21:04 80 16 97 11/01/23 20:36 36.4 C L 86 20 96 11/01/23 20:35 146/107 H 11/01/23 20:33 36.4 C L 87 20 97 11/01/23 20:30 142/103 H 11/01/23 20:29 141/103 H 11/01/23 20:27 36.4 C L 82 20 97 11/01/23 20:24 36.4 C L 80 20 97 11/01/23 20:18 36.4 C L 81 20 97 11/01/23 20:15 151/111 H 11/01/23 20:12 36.4 C L 81 20 97 11/01/23 20:10 151/105 H 11/01/23 20:09 36.4 C L 81 20 97 11/01/23 20:06 36.4 C L 79 20 97 11/01/23 20:05 152/109 H 11/01/23 20:00 36.4 C L 84 20 97 11/01/23 20:00 150/97 H 11/01/23 19:55 156/108 H 11/01/23 19:51 154/104 H 11/01/23 19:40 163/109 H 11/01/23 19:39 36.4 C L 85 20 93 11/01/23 19:35 161/115 H 11/01/23 19:35 161/115 H 11/01/23 19:31 179/123 H 11/01/23 19:25 159/109 H 11/01/23 19:18 36.3 C L 80 20 97 11/01/23 19:15 167/124 H 11/01/23 19:15 167/124 H 11/01/23 19:15 36.3 C L 79 20 97 11/01/23 19:10 164/123 H 11/01/23 18:51 36.2 C L 86 20 97 11/01/23 18:50 160/117 H 11/01/23 18:48 36.2 C L 82 20 96 11/01/23 18:45 147/107 H 11/01/23 18:42 36.2 C L 82 20 95 11/01/23 18:40 155/112 H 11/01/23 18:40 155/112 H 11/01/23 18:39 36.1 C L 83 20 95 11/01/23 18:35 162/108 H 11/01/23 18:30 36.1 C L 85 20 94 11/01/23 18:30 141/97 H 11/01/23 18:25 138/102 H 11/01/23 18:21 36.1 C L 84 20 93 11/01/23 18:20 154/112 H 11/01/23 18:15 139/96 11/01/23 18:10 150/101 H 11/01/23 18:09 36.2 C L 91 H 20 95 11/01/23 18:06 36.2 C L 89 20 94 11/01/23 18:05 122/99 11/01/23 17:55 170/122 H 11/01/23 17:55 170/122 H 11/01/23 17:50 162/120 H 11/01/23 17:48 125 H 11/01/23 17:45 159/110 H 11/01/23 17:40 162/104 H 11/01/23 17:20 135/93 11/01/23 17:18 122 H 20 90 11/01/23 17:15 120/80 11/01/23 17:12 126 H 20 94 11/01/23 17:11 130/83 11/01/23 17:11 130/83 11/01/23 17:07 154/113 H 11/01/23 17:07 154/113 H 11/01/23 17:06 117 H 94 11/01/23 17:05 108/88 11/01/23 17:03 117 H 96 11/01/23 17:00 107/91 11/01/23 17:00 107/91 11/01/23 16:55 11/01/23 16:55 11/01/23 16:55 36.6 C Pulse Ox O2 Del Method O2 Del Method FiO2 11/01/23 21:30 40 11/01/23 21:30 Mechanical Vent 40 11/01/23 21:24 Mechanical Vent 40 11/01/23 21:16 97 Mechanical Vent 11/01/23 21:04 40 11/01/23 20:36 Mechanical Vent 11/01/23 20:35 11/01/23 20:33 Mechanical Vent 11/01/23 20:30 11/01/23 20:29 11/01/23 20:27 Mechanical Vent 11/01/23 20:24 Mechanical Vent 11/01/23 20:18 Mechanical Vent 11/01/23 20:15 11/01/23 20:12 Mechanical Vent 11/01/23 20:10 11/01/23 20:09 Mechanical Vent 11/01/23 20:06 Mechanical Vent 11/01/23 20:05 11/01/23 20:00 Mechanical Vent 11/01/23 20:00 11/01/23 19:55 11/01/23 19:51 11/01/23 19:40 11/01/23 19:39 Mechanical Vent 11/01/23 19:35 11/01/23 19:35 11/01/23 19:31 11/01/23 19:25 11/01/23 19:18 Mechanical Vent 11/01/23 19:15 11/01/23 19:15 11/01/23 19:15 Mechanical Vent 11/01/23 19:10 11/01/23 18:51 Mechanical Vent 11/01/23 18:50 11/01/23 18:48 Mechanical Vent 11/01/23 18:45 11/01/23 18:42 Mechanical Vent 11/01/23 18:40 11/01/23 18:40 11/01/23 18:39 Mechanical Vent 11/01/23 18:35 11/01/23 18:30 Mechanical Vent 11/01/23 18:30 11/01/23 18:25 11/01/23 18:21 Mechanical Vent 11/01/23 18:20 11/01/23 18:15 11/01/23 18:10 11/01/23 18:09 11/01/23 18:06 11/01/23 18:05 11/01/23 17:55 11/01/23 17:55 11/01/23 17:50 11/01/23 17:48 11/01/23 17:45 11/01/23 17:40 11/01/23 17:20 11/01/23 17:18 Mechanical Vent 11/01/23 17:15 11/01/23 17:12 50 11/01/23 17:11 11/01/23 17:11 11/01/23 17:07 11/01/23 17:07 11/01/23 17:06 Ambu-Bag 11/01/23 17:05 11/01/23 17:03 11/01/23 17:00 11/01/23 17:00 11/01/23 16:55 Room Air 11/01/23 16:55 Non-rebreather 11/01/23 16:55 Non-rebreather Coding Level of Care Code 52834 CRITICAL CARE 1ST 30-74M Diagnoses AMS (altered mental status) R41.82 Acute drug overdose T50.901A Seizure-like activity R56.9
[2023-11-02] MEDS: PLASMA-LYTE A 1,000 ML IV SCH (00:54)
[2023-11-02 03:20] LABS: HCO3 VBG 32 mmol/L; Oxygen Saturation VBG 96.4 %; PCO2 VBG 52 mmHg (38-50); PO2 VBG 75 mmHg
[2023-11-02 03:29] LABS: Basophils # (auto) 0.02 K/uL (0.00-0.20); Basophils % (auto) 0.3 %; Eosinophils # (auto) 0.02 K/uL (0.00-0.50); Eosinophils % (auto) 0.3 %; Hematocrit (blood only) 40.5 % (42.0-52.0); Immature Granulocytes # (auto) 0.01 K/uL (0.01-0.20); Immature Granulocytes % (auto) 0.1 %; Lymphocytes # (auto) 2.35 K/uL (1.20-3.40); Mean Corpuscular Hemoglobin 25.9 pg (25.0-34.0); Mean Corpuscular Hgb Conc 32.1 g/dL (32.0-36.0); Mean Corpuscular Volume 80.8 fL (80.0-100.0); Monocytes # (auto) 0.59 K/uL (0.11-0.59); Neutrophils # (auto) 4.35 K/uL (1.40-6.50); Neutrophils % (auto) 59.3 %; Platelet Count 265 K/uL (130-400); RDW Coefficient of Variation 14.8 % (11.5-14.5); RDW Standard Deviation 43.4 fL (36.4-46.3); Red Blood Count 5.01 M/uL (4.70-6.10); White Blood Count 7.34 K/ul (4.8-10.8)
[2023-11-02 03:43] LABS: Albumin Globulin Ratio 1.4 (0.9-2); Albumin Level 3.9 gm/dl (3.4-5.0); BUN Creatinine Ratio 13.5 (10-20); Bilirubin,Total 0.4 mg/dl (0.2-1.0); Calcium 8.9 mg/dl (8.6-10.3); Creatinine Clr Calc Pharmacy 128.4 ml/min; Est GFR (African American) 118.2 ml/min; Globulin 2.8 gm/dl (2.5-4.0); Potassium 3.5 mmol/L (3.5-5.1); Total Protein 6.7 gm/dl (6.0-8.3)
[2023-11-02 03:49] LABS: iSTAT Allen Test Pass; iSTAT Art Bld Gas pCO2 Correct 52 mmHg (35-46); iSTAT Art Bld Gas pH Corrected 7.427 (7.35-7.45); iSTAT Arterial Blood Gas HCO3 35 meg/L (19-24); iSTAT Arterial Blood Gas pCO2 53 mmHg (35-46); iSTAT Arterial Blood Gas pH 7.42 (7.35-7.45); iSTAT Arterial Blood Gas pO2 86 mmHg (80-95); iSTAT Arterial Blood Gas pO2 C 84; iSTAT Carbon Dioxide 36 mmol/L (24-31); iSTAT FiO2 40 %; iSTAT Hematocrit 38 % (42-52); iSTAT Hemoglobin 12.9 g/dl (14.0-18.0); iSTAT Site L Radial; iSTAT Sodium 145 mmol/L (135-144)
[2023-11-02 05:01] LABS: Magnesium 2.1 mg/dl (1.7-2.4); Phosphorus 4.4 mg/dl (2.5-4.9)
[2023-11-02] MEDS: POTASSIUM CHLORIDE / WTR 10 MEQ/100 ML PLCT IV SCH (06:48)
--- NOTE | 2023-11-02 07:27 | Critical Care Progress Note ---
Date of Service November 02, 2023 Assessment & Plan (1) AMS (altered mental status): (2) Acute drug overdose: (3) Seizure-like activity: Plan Impression: 37-year-old male inmate with altered mental status presumptive due to illicit ingestion. Intubated in the emergency room due to altered mental status. Now extubated. No current issues. Patient does not report suicidal or homicidal ideation Recommendations: 1. Altered mental status: The patient denies ingestion although history is unreliable and he is not really forthcoming with details. Advised him to avoid future ingestions. No additional interventions required currently. 2. Questionable seizure-like activity. Neurologically he is intact. No indication for additional workup such as EEG or LP or advanced imaging. Suspect related to what ever the patient ingested prior to admission. 3. Mild hyponatremia: Liberalize fluid intake. 4. Lactic acidosis currently resolved. 5. Diabetes: Restart metformin 6. Hypertension: Restart lisinopril hydrochlorothiazide Patient's critical care issues have resolved. He can be dismissed from the ICU. Ultimate disposition is deferred to the hospitalist. Critical care will sign off. Feel free to contact us with questions or concerns Admission and Anticipated Discharge Date Admission Date: November 01, 2023 Subjective Patient seen and examined. EMR reviewed. Discussed with bedside critical care nurse. Patient is awake and alert. He refuses to answer questions. He denies taking anything or having any medications administered Review of Systems Review of Systems: All systems reviewed & are unremarkable except as noted in Subjective Physical Exam Constitutional: WD/WN, vitals as above Neck: trachea midline, no thyromegaly Respiratory: normal respiratory effort, lungs clear to auscultation Cardiovascular: RRR, no murmur, no edema Gastrointestinal (Abdomen): normal bowel sounds, soft, nontender, no hepatosplenomegaly Musculoskeletal: Extremities: extremities normal to inspection Skin: no rashes, warm and dry Neurologic: Nonfocal exam Lymphatic: no cervical lymphadenopathy Results & Data Results & Data Vital Signs (Past 12 Hours) Vital Signs Temp Pulse Pulse Resp BP BP Pulse Ox 11/02/23 04:05 36.8 C 71 14 126/84 93 11/02/23 04:00 11/02/23 03:34 69 14 93 11/02/23 03:08 36.5 C 69 14 95 11/02/23 03:00 123/77 11/02/23 02:09 36.3 C L 66 12 96 11/02/23 02:00 121/83 11/02/23 01:00 130/86 11/02/23 00:54 36.0 C L 66 12 97 11/02/23 00:00 66 11/02/23 00:00 35.9 C L 63 12 97 11/02/23 00:00 129/85 11/01/23 23:57 11/01/23 23:03 36.1 C L 72 14 97 11/01/23 23:00 129/93 11/01/23 22:05 75 14 97 11/01/23 22:03 36.3 C L 79 16 97 11/01/23 22:00 134/94 11/01/23 21:54 36.4 C L 81 16 97 11/01/23 21:33 36.4 C L 78 16 97 11/01/23 21:30 139/99 11/01/23 21:30 11/01/23 21:30 11/01/23 21:24 36.4 C L 82 18 144/100 H 97 11/01/23 21:16 11/01/23 21:04 80 16 97 11/01/23 20:36 36.4 C L 86 20 96 11/01/23 20:35 146/107 H 11/01/23 20:33 36.4 C L 87 20 97 11/01/23 20:30 142/103 H 11/01/23 20:29 141/103 H 11/01/23 20:27 36.4 C L 82 20 97 11/01/23 20:24 36.4 C L 80 20 97 11/01/23 20:18 36.4 C L 81 20 97 11/01/23 20:15 151/111 H 11/01/23 20:12 36.4 C L 81 20 97 11/01/23 20:10 151/105 H 11/01/23 20:09 36.4 C L 81 20 97 11/01/23 20:06 36.4 C L 79 20 97 11/01/23 20:05 152/109 H 11/01/23 20:00 36.4 C L 84 20 97 11/01/23 20:00 150/97 H 11/01/23 19:55 156/108 H 11/01/23 19:51 154/104 H 11/01/23 19:40 163/109 H 11/01/23 19:39 36.4 C L 85 20 93 11/01/23 19:35 161/115 H 11/01/23 19:35 161/115 H 11/01/23 19:31 179/123 H 11/01/23 19:25 159/109 H Pulse Ox O2 Del Method O2 Del Method FiO2 11/02/23 04:05 11/02/23 04:00 40 11/02/23 03:34 40 11/02/23 03:08 11/02/23 03:00 11/02/23 02:09 11/02/23 02:00 11/02/23 01:00 11/02/23 00:54 11/02/23 00:00 11/02/23 00:00 11/02/23 00:00 11/01/23 23:57 40 11/01/23 23:03 11/01/23 23:00 11/01/23 22:05 40 11/01/23 22:03 11/01/23 22:00 11/01/23 21:54 11/01/23 21:33 11/01/23 21:30 11/01/23 21:30 40 11/01/23 21:30 Mechanical Vent 40 11/01/23 21:24 Mechanical Vent 40 11/01/23 21:16 97 Mechanical Vent 11/01/23 21:04 40 11/01/23 20:36 Mechanical Vent 11/01/23 20:35 11/01/23 20:33 Mechanical Vent 11/01/23 20:30 11/01/23 20:29 11/01/23 20:27 Mechanical Vent 11/01/23 20:24 Mechanical Vent 11/01/23 20:18 Mechanical Vent 11/01/23 20:15 11/01/23 20:12 Mechanical Vent 11/01/23 20:10 11/01/23 20:09 Mechanical Vent 11/01/23 20:06 Mechanical Vent 11/01/23 20:05 11/01/23 20:00 Mechanical Vent 11/01/23 20:00 11/01/23 19:55 11/01/23 19:51 11/01/23 19:40 11/01/23 19:39 Mechanical Vent 11/01/23 19:35 11/01/23 19:35 11/01/23 19:31 11/01/23 19:25 Critical Care Results & Data Vital Signs (Past 12 Hours) Vital Signs Temp Pulse Pulse Resp BP BP Pulse Ox 11/02/23 04:05 36.8 C 71 14 126/84 93 11/02/23 04:00 11/02/23 03:34 69 14 93 11/02/23 03:08 36.5 C 69 14 95 11/02/23 03:00 123/77 11/02/23 02:09 36.3 C L 66 12 96 11/02/23 02:00 121/83 11/02/23 01:00 130/86 11/02/23 00:54 36.0 C L 66 12 97 11/02/23 00:00 66 11/02/23 00:00 35.9 C L 63 12 97 11/02/23 00:00 129/85 11/01/23 23:57 11/01/23 23:03 36.1 C L 72 14 97 11/01/23 23:00 129/93 11/01/23 22:05 75 14 97 11/01/23 22:03 36.3 C L 79 16 97 11/01/23 22:00 134/94 11/01/23 21:54 36.4 C L 81 16 97 11/01/23 21:33 36.4 C L 78 16 97 11/01/23 21:30 139/99 11/01/23 21:30 11/01/23 21:30 11/01/23 21:24 36.4 C L 82 18 144/100 H 97 11/01/23 21:16 11/01/23 21:04 80 16 97 11/01/23 20:36 36.4 C L 86 20 96 11/01/23 20:35 146/107 H 11/01/23 20:33 36.4 C L 87 20 97 11/01/23 20:30 142/103 H 11/01/23 20:29 141/103 H 11/01/23 20:27 36.4 C L 82 20 97 11/01/23 20:24 36.4 C L 80 20 97 11/01/23 20:18 36.4 C L 81 20 97 11/01/23 20:15 151/111 H 07/03/24 20:12 36.4 C L 81 20 97 11/01/23 20:10 151/105 H 11/01/23 20:09 36.4 C L 81 20 97 11/01/23 20:06 36.4 C L 79 20 97 11/01/23 20:05 152/109 H 11/01/23 20:00 36.4 C L 84 20 97 11/01/23 20:00 150/97 H 11/01/23 19:55 156/108 H 11/01/23 19:51 154/104 H 11/01/23 19:40 163/109 H 11/01/23 19:39 36.4 C L 85 20 93 11/01/23 19:35 161/115 H 11/01/23 19:35 161/115 H 11/01/23 19:31 179/123 H Pulse Ox O2 Del Method O2 Del Method FiO2 11/02/23 04:05 11/02/23 04:00 40 11/02/23 03:34 40 11/02/23 03:08 11/02/23 03:00 11/02/23 02:09 11/02/23 02:00 11/02/23 01:00 11/02/23 00:54 11/02/23 00:00 11/02/23 00:00 11/02/23 00:00 11/01/23 23:57 40 11/01/23 23:03 11/01/23 23:00 11/01/23 22:05 40 11/01/23 22:03 11/01/23 22:00 11/01/23 21:54 11/01/23 21:33 11/01/23 21:30 11/01/23 21:30 40 11/01/23 21:30 Mechanical Vent 40 11/01/23 21:24 Mechanical Vent 40 11/01/23 21:16 97 Mechanical Vent 11/01/23 21:04 40 11/01/23 20:36 Mechanical Vent 11/01/23 20:35 11/01/23 20:33 Mechanical Vent 11/01/23 20:30 11/01/23 20:29 11/01/23 20:27 Mechanical Vent 11/01/23 20:24 Mechanical Vent 11/01/23 20:18 Mechanical Vent 11/01/23 20:15 11/01/23 20:12 Mechanical Vent 11/01/23 20:10 11/01/23 20:09 Mechanical Vent 11/01/23 20:06 Mechanical Vent 11/01/23 20:05 11/01/23 20:00 Mechanical Vent 11/01/23 20:00 11/01/23 19:55 11/01/23 19:51 11/01/23 19:40 11/01/23 19:39 Mechanical Vent 11/01/23 19:35 11/01/23 19:35 11/01/23 19:31 Lab & Micro Results (Past 24 Hours) RBC 5.01 M/uL (4.70-6.10) 11/02/23 WBC 7.34 K/ul (4.8-10.8) 11/02/23 Hgb 13.0 g/dl (14.0-18.0) L 11/02/23 Hct 40.5 % (42.0-52.0) L 11/02/23 MCV 80.8 fL (80.0-100.0) 11/02/23 MCH 25.9 pg (25.0-34.0) 11/02/23 MCHC 32.1 g/dL (32.0-36.0) 11/02/23 RDW Standard Deviation 43.4 fL (36.4-46.3) 11/02/23 RDW Coefficient of Variation 14.8 % (11.5-14.5) H 11/02/23 Plt Count 265 K/uL (130-400) 11/02/23 MPV 9.0 fL (9.4-12.4) L 11/02/23 Neutrophils (%) (Auto) 59.3 % 11/02/23 Lymphocytes (%) (Auto) 32.0 % 11/02/23 Monocytes # (Auto) 0.59 K/uL (0.11-0.59) 11/02/23 Eosinophils # (Auto) 0.02 K/uL (0.00-0.50) 11/02/23 Immature Granulocyte % (Auto) 0.1 % 11/02/23 Neutrophils # (Auto) 4.35 K/uL (1.40-6.50) 11/02/23 Lymphocytes # (Auto) 2.35 K/uL (1.20-3.40) 11/02/23 Monocytes # (Auto) 0.59 K/uL (0.11-0.59) 11/02/23 Eosinophils # (Auto) 0.02 K/uL (0.00-0.50) 11/02/23 Basophils # (Auto) 0.02 K/uL (0.00-0.20) 11/02/23 Immature Granulocyte # (Auto) 0.01 K/uL (0.01-0.20) 4 Na 143 mmol/L (136-145) 11/02/23 K 3.5 mmol/L (3.5-5.1) 11/02/23 Cl 105 mmol/L (98-107) 11/02/23 CO2 31 mmol/L (21-32) 11/02/23 Anion Gap 7 (3-11) 11/02/23 BUN 13 mg/dl (6-23) 11/02/23 Creatinine 0.96 mg/dl (0.6-1.4) 11/02/23 Estimated GFR ( Amer) 118.2 ml/min 11/02/23 Estimated GFR (Non-Af Amer) 102.0 ml/min 11/02/23 BUN/Creatinine Ratio 13.5 (10-20) 11/02/23 Glu 91 mg/dl (70-99(Fasting)) 11/02/23 Ca 8.9 mg/dl (8.6-10.3) 11/02/23 Phosphorus Level 4.4 mg/dl (2.5-4.9) 11/02/23 Total Bilirubin 0.4 mg/dl (0.2-1.0) 11/02/23 Direct Bilirubin 0.1 mg/dl (0-0.2) 11/01/23 AST 19 U/L (13-39) 11/02/23 ALT 28 U/L (7-52) 11/02/23 Alkaline Phosphatase 52 U/L (34-104) 11/02/23 TP 6.7 gm/dl (6.0-8.3) 11/02/23 Albumin 3.9 gm/dl (3.4-5.0) 11/02/23 Globulin 2.8 gm/dl (2.5-4.0) 07/04/24 Albumin/Globulin Ratio 1.4 (0.9-2) 11/02/23 Mg 2.1 mg/dl (1.7-2.4) 11/02/23 04:34 Calcium Level 8.9 mg/dl (8.6-10.3) 11/02/23 03:07 Prothromb Time International Ratio 1.0 (0.9-1.1) 11/01/23 17:0 3 Venous Blood pH 7.40 (7.36-7.41) 11/02/23 03:07 Venous Blood Partial Pressure CO2 52 mmHg (38-50) H 11/02/23 03 :07 Venous Blood Partial Pressure O2 75 mmHg 11/02/23 03:07 Venous Blood HCO3 32 mmol/L 11/02/23 03:07 Venous Blood Base Excess 6.0 mEq/L 11/02/23 03:07 Venous Blood Oxygen Saturation 96.4 % 11/02/23 03:07 Ben Test Pass 11/02/23 03:37 Diagnostic Findings (Past 24 Hours) Head CT 11/01/23 16:55 CT OF THE HEAD WITHOUT CONTRAST CLINICAL HISTORY: Seizure. COMPARISON STUDY: No previous studies for comparison. CT DOSE: 625.8 mGy.cm TECHNIQUE: Helical axial images of the head were obtained without IV contrast. Automated exposure control was utilized for the study. A dose lowering technique was utilized adhering to the principles of ALARA. FINDINGS: No acute intracranial hemorrhage, midline shift or mass effect is present. The ventricular system is unremarkable. The basal cisterns are patent. No extra-axial collections are present. There are no findings to suggest acute dural sinus thrombosis or acute territorial infarct. There are no calvarial fractures. Scalp edema/skin thickening is incidentally noted. There are secretions within the nasopharynx. IMPRESSION: 1. No acute intracranial findings. 2. No calvarial fractures. ACT 112: Negative or not required by law. Electronically signed by: Mendoza Le M.D. 11/01/2023 5:42 PM Chest X-Ray 11/01/23 16:56 XR chest 1V portable CLINICAL HISTORY: Altered mental status. COMPARISON STUDY: None. FINDINGS: Initial image obtained at 5:00 PM demonstrated low lung volumes. Bibasilar opacities may reflect atelectasis. Subsequent image obtained of 5:16 PM demonstrate interval placement of an endotracheal tube. Tip is 4.2 cm above the balwinder. Tip of nasogastric tube is at least within the body of the stomach. No pneumothorax or pleural effusion. There is mild opacity along the left heart border. No evidence for pulmonary edema. IMPRESSION: 1. Satisfactory positioning of the endotracheal and nasogastric tubes. 2. Mild left basilar opacity. This favors atelectasis although pneumonia/aspiration pneumonitis could appear similar. 3. No pneumothorax. ACT 112: Negative or not required by law. Electronically signed by: Mnedoza Le M.D. 11/01/2023 5:32 PM I & O Totals 24 Hours 11/01/23 11/02/23 11/03/23 06:59 06:59 06:59 Intake Total 413.938 / 413.938 Output Total 2210 / 2210 Balance -1796.062 / -1796.062 Cumulative 11/01/23 16:37 thru 11/02/23 06:55 Intake Total 413.938 Output Total 2210 Balance -1796.062 RT Ventilator Mngmt (Last Documented) Ventilator Ordered Settings Ventilator Support Mode Assist Control 11/02/23 04:00 Respiratory Rate 14 11/02/23 04:05 Ventilator Tidal Volume 395 11/02/23 04:00 Setting Minute Ventilation 5.5 11/02/23 03:34 Positive End Expiratory 5 11/02/23 04:00 Pressure Fraction of Inspired Oxygen 40 11/02/23 04:00 Ventilator - PT Measurements Respiratory Rate 14 Exhaled Tidal Volume 395 Minute Ventilation 5.5 Peak Inspiratory Airway 19 Pressure Plateau Pressure 15.7 Respiratory Cycle Inspiratory: 1:3.3 Expiratory Ratio Inspiratory Phase Time 1 End-Tidal CO2 45 Static Lung Compliance 36.92 Dynamic Lung Compliance 28.21 Normal Static Lung Compliance 47.00 Coding Level of Care Code 00367 SUB INP/OBS CARE 3/50MIN Diagnoses AMS (altered mental status) R41.82 Acute drug overdose T50.901A Seizure-like activity R56.9
--- NOTE | 2023-11-02 07:46 | XRay Report ---
XR chest 1V portable CLINICAL HISTORY: ett placement TECHNIQUE: Single frontal radiograph of the chest was obtained. Comparison: Comparison is made to chest radiograph 11/01/2023 FINDINGS: Lines and tubes are stable. Endotracheal tube terminates approximately 4 cm from the balwinder. The card iomediastinal silhouette is normal. The lungs are clear. No evidence of pleural effusion or pneumotho rax. IMPRESSION: Lines and tubes are in satisfactory position. ACT 112: Negative or not required by law. Electronically signed by: William Sibley M.D. 11/02/2023 7:44 AM
[2023-11-02] MEDS: metFORMIN HCL 500 MG TAB PO SCH (07:51)
[2023-11-02] MEDS: amLODIPine BESYLATE 5 MG TAB PO SCH (07:52)
[2023-11-02] MEDS: LISINOPRIL/HCTZ 20/25MG 1 TAB PO SCH (07:52)
--- NOTE | 2023-11-02 09:55 | Electrocardiogram Report ---
Test Reason : Blood Pressure : / mmHG Vent. Rate : 096 BPM Atrial Rate : 096 BPM P-R Int : 174 ms QRS Dur : 098 ms QT Int : 354 ms P-R-T Axes : 056 083 024 degrees QTc Int : 447 ms Normal sinus rhythm Normal ECG No previous ECGs available Confirmed by Evin Summers ([id number]) on 11/02/2023 9:54:59 AM Referred By: Percy HAMMER Confirmed By:Evin Summers
--- NOTE | 2023-11-02 10:43 | Discharge Summary ---
Date of Service November 02, 2023 Admission HPI Per Admitting Provider 37-year-old male arrived brought in by ambulance from [facility] found unresponsive cell. Received 2 doses of Narcan in the field, per EMS patient had tonic-clonic seizure and was given 5 mg of midazolam by EMS. On arrival to ER patient was on nonrebreather, minimally responsive to painful stimuli, unresponsive to voice and was subsequently intubated. Reported history of K2, Suboxone, fentanyl within present. Urine toxicology negative for alcohol, positive for benzos following midazolam administration, negative for salicylate/acetaminophen. CT of the head was without acute findings. Chest x- ray favoring atelectasis but from which aspiration is not ruled out, ETT in place. Intubated for airway protection. On propofol and fentanyl. History not available from patient due to ETT and mental status. 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 No specific hx in Mr. Levy of drug use. Was found on the block yelling out with vomiting, narcan x2 and calmed down but breathing subsequently diminished and EMS was called for evaluation. Hx HTN on amlodipine/lisinopril/hctz, metformin 500mg for pre-DM. No other meds. No med allergies. No other notes or history available. Admission Exam Per Admitting Provider General: ETT in place. HEENT: Atraumatic, normocephalic. Pupils equal, reactive to light bilaterally Pulm: CTAB A&P. -wheezes, -rales, -rhonchi. Symmetrical chest rise. No increased work of breathing. No respiratory distress. Cardiac: RRR, -mrg. Radial pulses intact and symmetrical. Abdominal: nondistended, soft. BS present. Extremities: Withdraws to noxious stimuli in hands and feet bilaterally. Principal Diagnosis Metabolic encephalopathy, most likely toxic encephalopathy Seizure-like activity, most likely toxin induced Discharge Exam General: Awake, conversant Heart: S1, S2/regular rate and rhythm, no murmur rubs or gallops Lungs: Clear to auscultation bilaterally. Normal effort Abdomen: Soft/nontender/nondistended. No hepatosplenomegaly Extremities: No clubbing/cyanosis. No edema Behavior: Appropriate, cooperative Discharge Data Allergies Allergy/AdvReac Type Severity Reaction Status Date / Time No Known Allergies Allergy Verified 11/01/23 17:37 Consultations 11/01/23 18:42 ED Decision to Admit Stat 11/01/23 21:16 Consult [employer] Routine Ordered Studies 11/01/23 16:55 CT head/brain wo con Stat Hospital Course (1) Toxic encephalopathy: Patient was found to be riding with? Seizure, yelling, agitated. Was given Versed and Narcan, followed by unresponsiveness. Needed to be intubated for airway protection overnight. Now extubated. Patient most likely ingested some illicit drugs although urine drug screen was negative other than benzos (post Versed) Patient has a history of using K2, Suboxone, fentanyl After extubation, he is back to his usual baseline. He still denies illicit drugs although it is questionable how reliable and truthful historian he is CT head negative (2) Seizure-like activity: Seizure like activity,? Drug-induced No prior history of seizure No reason for further workup with EEG or LP Most likely related to ingested toxin (3) HTN (hypertension): Resume home medications Plan Discharge back to present today. Spoke to FRANCIS Yung at present who accepted the patient in transfer Total Time Total Time Spent Total Time Spent (In Minutes): 35 Discharge Plan Discharge Items Patient Disposition: [facility] Reason For Visit: AMS, INTUBATED FOR AIRWAY PROTECTION Discharge Diagnosis: Metabolic encephalopathy, most likely toxic encephalopathy Seizure-like activity, most likely toxin induced Activity: Resume your previous activity Non-emergency contact: Primary Care Provider Call non-emergency contact if: you have any medication questions and your symptoms worsen Follow-up/Referrals: Percy HAMMER [Primary Care Provider] - Diet: Regular Addtl Attending Provider Instructions: Advised to follow-up with PCP in 1 week Pending Studies at Discharge: No Stand-Alone Forms: [facility] Skilled Items Patient informed of condition?: Yes Discharge Level of Care: Other Communicable Disease: No Discharge Prognosis: Stable Lines: None Urinary Catheter: No Medications and DC Order Prescriptions: Continued metformin 500 mg Tablet 500 mg PO BIDWMEAL amlodipine 10 mg Tablet 10 mg PO DAILY lisinopril-hydrochlorothiazide 20-25 mg Tablet 1 tab PO DAILY Discharge Orders: Discharge Order (Routine); Ordered 11/02/23 Ordered By: Xochitl Goddard Admission Data Admit Date/Time: 11/01/23 19:19 Attending Provider: Gonsalo Rubin Admit Provider: Gonsalo Rubin Primary Care Provider: Percy HAMMER Other Providers: Adamaris Colon; Johnathan Steele Coding Level of Care Code 10274 INP/OBS DISCH >30 MIN Diagnoses Toxic encephalopathy G92.9 Seizure-like activity R56.9 HTN (hypertension) I10
== END 2023-11-02 12:15 | DRG 917 ==
LOC: ED 16:48 → 1E 19:19